=== PATIENT | female | born 1990 | race Caucasian/White ===

== ENCOUNTER 2018-01-08 09:55 | Emergency (ER) | payer MEDICAID ==
[~2018-01-08] VITALS: Ht 170.2 cm; Wt 96.5 kg
[2018-01-08] MEDS ORDERED: FAMOTIDINE 20 MG/2 ML IVP ONE (10:30)
[2018-01-08] MEDS ORDERED: SODIUM CHLORIDE 0.9% 1,000ML IVBOLUS ONE (10:30)
[2018-01-08] MEDS ORDERED: SODIUM CHLORIDE FLUSH 10ML SYR IVF ONE (10:30)
[2018-01-08] MEDS ORDERED: ONDANSETRON ODT 8 MG PO STA (10:30)
[2018-01-08 10:45] LABS: MEAN CORPUSCULAR HEMOGLOBIN 31.2 pg (27.0-34.8); MEAN CORPUSCULAR HGB CONC 34.7 g/dL (32.4-35.8); MEAN CORPUSCULAR VOLUME 89.7 fL (80-100); MEAN PLATELET VOLUME 8.8 fL (7.4-10.4); PLATELET COUNT 314 x10^3/uL (130-400); RED BLOOD COUNT 5.18 x10^6/uL (3.82-5.3); RED CELL DISTRIBUTION WIDTH 13.4 % (9.6-15.2)
[2018-01-08 10:58] LABS: ALANINE AMINOTRANSFERASE 64 U/L (12-78); ANION GAP 9 mmol/L (5-15); CALCIUM 8.4 mg/dL (8.5-10.1); CHLORIDE 101 mmol/L (98-107); CREATININE 0.85 mg/dL (0.55-1.02)
[2018-01-08] MEDS ORDERED: ONDANSETRON ODT 8 MG ONE (11:02)
[2018-01-08 11:03] LABS: ALKALINE PHOSPHATASE 71 U/L (45-117); BASOPHILS # (AUTO) 0.07 x10^3/uL (0-0.1); BASOPHILS % (AUTO) 0 % (0-1); BILIRUBIN,TOTAL 0.9 mg/dL (0.2-1.0); EOSINOPHILS # (AUTO) 0.02 x10^3/uL (0-0.4); EOSINOPHILS % (AUTO) 0 % (1-7); LYMPHOCYTES # (AUTO) 2.89 x10^3/uL (1-3.4); LYMPHOCYTES % (AUTO) 16 % (22-44); MD SCAN; MONOCYTES # (AUTO) 0.94 x10^3/uL (0.2-0.8); MONOCYTES % (AUTO) 5 % (2-9); NEUTROPHILS # (AUTO) 14.67 x10^3/uL (1.8-6.8); NEUTROPHILS % (AUTO) 79 % (42-75); TOTAL PROTEIN 7.7 g/dL (6.4-8.2)
[2018-01-08] MEDS ORDERED: FAMOTIDINE 20 MG/2 ML ONE (11:03)
[2018-01-08 11:17] LABS: CULTURE INDICATED? YES; MICROSCOPIC INDICATED
[2018-01-08] MEDS ORDERED: METOCLOPRAMIDE 5 MG/ML, 2ML IVPush ONE (12:00)
[2018-01-08] MEDS ORDERED: METOCLOPRAMIDE 5 MG/ML, 2ML ONE (12:14)
[2018-01-08] MEDS ORDERED: OMNIPAQUE 350 MG/ML, 100ML BOTTLE ONE (13:12)
[2018-01-08] MEDS ORDERED: DICYCLOMINE 10 MG/ML, 2ML IM ONE (14:00)
[2018-01-08] MEDS ORDERED: ONDANSETRON ODT 4 MG ONE (14:26)
[2018-01-08] MEDS ORDERED: ONDANSETRON ODT 4 MG PO ONE (14:30)
[2018-01-08 14:32] VITALS: BP 135/90
== END 2018-01-08 14:35 | disposition home or self-care (01) ==
LOC: ED 12:09
DX: K29.00 Acute gastritis without bleeding (principal); F17.210 Nicotine dependence, cigarettes, uncomplicated
CPT/HCPCS: 36415; 74177; 80053; 81001; 83690; 84703; 85025; 87086; 96361; 96374; 96375; 99285; J2765; J7030; Q0162; Q9967; S0028